=== PATIENT | female | born 2005 | race Hispanic/Latino ===

== ENCOUNTER 2024-09-14 20:45 | Emergency (ER) | payer OTHER ==
[2024-09-15] MEDS ORDERED: Acetaminophen 500 MG TAB ONE (01:26)
[2024-09-15] MEDS ORDERED: Ketorolac Tromethamine 30 MG (1 mL) VIAL ONE (01:26)
[2024-09-15] MEDS ORDERED: Ondansetron ODT 4 MG TAB ONE ×2 (01:26→01:27)
[2024-09-15] MEDS ORDERED: Metoclopramide HCl 10 MG (2 mL) VIAL ONE (01:26)
[2024-09-15] MEDS ORDERED: diphenhydrAMINE 50 MG/ML VIAL ONE (01:30)
== END 2024-09-15 02:23 | disposition home or self-care (01) ==
LOC: ERS 20:45
DX: G43.909 Migraine, unspecified, not intractable, without status migrainosus (principal)
CPT/HCPCS: 96374; 96375; J1200; J1885; J2765; Q0162

== ENCOUNTER 2025-09-18 09:04 | Emergency (ER) | payer OTHER ==
[2025-09-18] MEDS ORDERED: Ketorolac Tromethamine 30 MG (1 mL) VIAL ONE (09:42)
[2025-09-18] MEDS ORDERED: Ondansetron PF 4 MG/2 ML Vial ONE (09:42)
[2025-09-18 10:09] LABS: #Basophils 0.04 10x3/uL (0.0-0.2); #Eosinophils 0.09 10x3/uL (0.0-0.7); #Monocytes 0.60 10x3/uL (0.11-0.59); #Neutrophils 3.92 10x3/uL (1.40-6.50); %Basophils 0.6 % (0.0-1.0); %Eosinophils 1.3 % (0.0-10.0); %Lymphocytes 32.7 % (28.0-48.0); %Monocytes 8.6 % (0.0-4.0); %Neutrophils 56.5 % (31.0-61.0); Hematocrit 37.7 % (36.0-47.0); Hemoglobin 13.1 g/dL (12.0-16.0); Mean Corpuscular Hemoglobin 30.2 pg (25.0-35.0); Mean Corpuscular Volume 86.9 fL (78.0-98.0); Platelet Count 230 10x3/uL (130-400); Red Blood Cell (RBC) Count 4.34 mill/uL (4.00-5.20); White Blood Cell (WBC) Count 6.94 10x3/uL (4.8-10.8)
[2025-09-18 10:22] LABS: Bacteria/HPF None Seen HPF (None Seen); CAUTI Indications for Culture Dysuria,urgency,freq; Glucose, Urine (Dipstick) Normal (Negative); Leukocyte Negative Leu/uL (Negative); Protein, Urine (Dipstick) Negative (Neg-Trace); RBC/HPF 0-3 HPF (0-3); Specific Gravity, Urine 1.030 (1.002-1.036); WBC/HPF 0-3 HPF (0-3)
[2025-09-18 10:24] LABS: BHCG - Serum Negative (NEGATIVE); Pregs Control Background? CLEAR/WHITE (CLR/WHITE); Pregs Control Bar Appear? YES (CONTROL BAR)
[2025-09-18 10:26] LABS: ALT (SGPT) 9 U/L (Less than 34); AST (SGOT) 19 U/L (11-34); Albumin 4.2 g/dL (3.1-4.5); Alkaline Phosphatase 29 U/L (40-100); Anion Gap 14 mmol/L (10-20); BUN (Urea Nitrogen) 16 mg/dL (7.0-18.7); Bilirubin, Total 0.3 mg/dL (0.3-1.2); Calc. Creatinine Clearance 0 mL/min (70-130); Calcium 8.7 mg/dL (7.8-10.44); Carbon Dioxide 19 mmol/L (22-29); Chloride 109 mmol/L (98-107); Globulin 2.8 g/dL (2.4-3.5); Glucose 93 mg/dL (70-105); Potassium 3.7 mmol/L (3.5-5.1); Sodium 138 mmol/L (136-145)
[2025-09-18 10:32] LABS: Urine Culture Reflex No No
[2025-09-18] MEDS ORDERED: Iopamidol 370 76% 100 ML VIAL ONE (12:25)
== END 2025-09-18 11:58 | disposition home or self-care (01) ==
LOC: ERS 09:04
DX: N94.6 Dysmenorrhea, unspecified (principal); R10.20 Pelvic and perineal pain unspecified side
CPT/HCPCS: 74177; 80053; 81001; 84703; 85025; 96374; 96375; J1885; J2270; J2405